=== PATIENT | male | born 1970 | race African-American/Black ===

== ENCOUNTER 2017-02-18 10:20 | Emergency (ER) | payer MEDICAID ==
[~2017-02-18] VITALS: Ht 182.9 cm; Wt 115.2 kg
[~2017-02-18 10:20] MED LIST: BACTRIM DS TAB1 EAC1 ORAL; KEFLEX500 MG ORAL
[2017-02-18] MEDS ORDERED: oxyCODONE HCL/Acetaminophen 5/325mg ORAL ONE (11:15)
[2017-02-18] MEDS ORDERED: Ketorolac 60mg Inj IM ONE (11:15)
--- NOTE | 2017-02-18 12:38 | Emergency Room Report ---
History of Present Illness General Chief Complaint: Back Pain-No Injury Source: Patient Present Illness HPI Increase in lower back pain. He's been told he has sciatica. The patient says the pain has been severe for the past 2 days. He is taking 800 mg of ibuprofen [id number]. He denies any incontinence, blood thinners, fever, oncologic problem. There is no weakness in the lower extremities. Hurts to sit down. Pain is 8-9/10 burning and aching. Radiates somewhat into his right testicle. He had to miss work several years ago for months due to this same type of pain. He prefers to stand up. No chest pain, URI symptoms, cough, dyspnea, rashes, dysuria, hematuria. No depression. 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, hair salon Reviewed Nursing Documentation: PMH: Agreed, PSxH: Agreed Nursing Documentation-PMH Past Medical History: No History, Except For Review of Systems All Other Systems: negative except mentioned in HPI Physical Exam Vital Signs Date Time Temp Pulse Resp B/P (MAP) Pulse Ox O2 Delivery O2 Flow Rate FiO2 02/18/17 10:32 97.5 69 18 118/79 98 Room Air General Appearance: well appearing, no apparent distress, alert, GCS 15 Head: normocephalic, atraumatic Eyes: bilateral eye normal inspection, bilateral eye PERRL ENT: hearing grossly normal, normal voice, moist mucus membranes Neck: full range of motion, supple Respiratory: lungs clear, no respiratory distress, speaking full sentences Cardiovascular #1: regular rate, rhythm Cardiovascular #2: 2+ radial (R) Gastrointestinal: normal inspection, normal bowel sounds Musculoskeletal: digits/nails normal, no calf tenderness, other - back spasms, no bony tenderness, more spasms R. SLR with some increased pain at near 90 degrees of flexion on R, no cross over pain Neurologic: alert, motor strength/tone normal, DTRs symmetric, sensory intact, cerebellar normal, normal gait, speech normal Psychiatric: mood/affect normal Reflexes: 2+ knee (R), 2+ knee (L), 2+ ankle (R), 2+ ankle (L) Skin: no rash Medical Decision Making Diagnostic Impression: Primary Impression: Back pain Qualified Codes: M54.41 - Lumbago with sciatica, right side Additional Impression: Muscle spasm ER Course Patient with back pain with h/o sciatica. DDx: sciatica, strain, exacerbation of disk disease amongst others. No red flag signs or symptoms. No acute trauma. Imagining not indicated at this time. Will focus on analgesia. Improved with treatment. Patient stable for outpatient observation and treatment. Last Vital Signs Date Time Temp Pulse Resp B/P (MAP) Pulse Ox O2 Delivery O2 Flow Rate FiO2 02/18/17 12:59 63 16 129/75 100 Room Air 02/18/17 12:59 97.4 Status: improved Disposition: HOME, SELF-CARE Condition: Improved Scripts Methocarbamol* (ROBAXIN*) 500 Mg Tablet 500 MG PO TID, #10 TAB 0 Refills Prov: Ken Owens M.D. 02/18/17 Tramadol Hcl* (ULTRAM*) 50 Mg Tablet 50 MG ORAL Q6H Y for For Pain, #14 TAB 0 Refills Prov: Ken Owens M.D. 02/18/17 Ibuprofen* (MOTRIN*) 600 Mg Tablet 600 MG ORAL Q6H Y for For Pain, #20 TAB Prov: Ken Owens M.D. 02/18/17 Referrals: [facility]OS[facility]/,REFERRING (PCP) Ken Owens M.D. Feb 18, 2017 12:38
[2017-02-18] MEDS ORDERED: ROBAXIN500 MG PO (12:40)
[2017-02-18] MEDS ORDERED: IBUPROFEN600 MG ORAL (12:40)
[2017-02-18] MEDS ORDERED: TRAMADOL HCL50 MG ORAL (12:40)
[2017-02-18 12:59] VITALS: BP 129/75
== END 2017-02-18 13:00 | disposition home or self-care (01) ==
LOC: EMR 12:14
DX: M54.40 Lumbago with sciatica, unspecified side (principal); M62.830 Muscle spasm of back
CPT/HCPCS: 96372; 99284

== ENCOUNTER 2017-07-22 18:31 | Emergency (ER) | payer MEDICAID ==
[~2017-07-22] VITALS: Ht 185.4 cm; Wt 113.4 kg
[~2017-07-22 18:31] MED LIST changes: +IBUPROFEN600 MG ORAL; +ROBAXIN500 MG PO; +TRAMADOL HCL50 MG ORAL
[2017-07-22] MEDS ORDERED: NKM (18:40)
[2017-07-22 18:50] VITALS: BP 143/87
[2017-07-22] MEDS ORDERED: Cephalexin 500mg cap ORAL ONE (19:00)
[2017-07-22] MEDS ORDERED: CEPHALEXIN500 MG ORAL (19:08)
[2017-07-22] MEDS ORDERED: INDOMETHACIN50 MG PO (19:08)
[2017-07-22 19:16] VITALS: BP 143/87
--- NOTE | 2017-07-22 20:00 | Emergency Room Report ---
History of Present Illness General Chief Complaint: Pain Source: Patient Present Illness HPI The patient is a 47-year-old male presenting for left leg and left toe pain. He states that he has been eating seafood for the past week. He states that this feels like gout. Pain is at the left big toe described as a 9/10 throbbing sensation. Worse with touch. He has not used any medications at. he is also complaining of left lower leg pain and swelling. He states that he was at the gym one week prior, tripped and fell. He noticed abrasions to the leg and ankle. The are has become red and swollen. This pain is a 3/10 dull ache and does not radiate. Worse with touch. He denies other symptoms including fever, chills, numbness or tingling, chest pain, shortness of breath, cough Allergies: Coded Allergies: No Known Allergies (Unverified , 01/26/14) Patient History Past Medical History: see triage record Pertinent Family History: none Reviewed Nursing Documentation: PMH: Agreed, PSxH: Agreed Review of Systems All Other Systems: negative except mentioned in HPI Physical Exam Vital Signs Date Time Temp Pulse Resp B/P (MAP) Pulse Ox O2 Delivery O2 Flow Rate FiO2 07/22/17 18:38 98.4 85 17 150/90 95 Room Air 98.4 Sp02 EP Interpretation: reviewed, normal General Appearance: no apparent distress, alert, GCS 15, non-toxic Head: normocephalic, atraumatic Eyes: bilateral eye normal inspection, bilateral eye PERRL Respiratory: chest non-tender, lungs clear, normal breath sounds, speaking full sentences Cardiovascular #1: regular rate, rhythm, no edema Musculoskeletal: no calf tenderness, inflammation - L lower leg, swelling - L first toe and L distal lower leg, tender - L 1st toe Neurologic: alert, oriented x3, responsive, motor strength/tone normal, sensory intact, speech normal Psychiatric: judgement/insight normal, memory normal, mood/affect normal, no suicidal/homicidal ideation Skin: rash - erythema to L lower leg, abrasions - over L tibia and L ankle Medical Decision Making PA Attestation Dr. Burleson is my supervising physician. Patient management was discussed with my supervising physician Diagnostic Impression: Primary Impression: Gout Qualified Codes: M10.9 - Gout, unspecified Additional Impression: Cellulitis Qualified Codes: L03.116 - Cellulitis of left lower limb ER Course The patient is a 47-year-old male presenting for left leg and left toe pain. Ddx considered include but not limited to gout, cellulitis, sprain/strain, fracture, contusion PE: Afebrile. NAD RRR Lungs CTA bilat Left lower leg has edema, erythema, and tenderness surrounding abrasions. Left toe first digit has edema, erythema, and tenderness to palpation with light touch. The patient will be treated with colchicine for gout and Keflex for cellulitis Is given prescription for Keflex and indomethacin. He will followup with his primary doctor as soon as possible. ER precautions were given Last Vital Signs Date Time Temp Pulse Resp B/P (MAP) Pulse Ox O2 Delivery O2 Flow Rate FiO2 07/22/17 19:16 98.4 77 17 143/87 95 Room Air 98.4 Status: improved Disposition: HOME, SELF-CARE Condition: Improved Scripts Indomethacin (INDOMETHACIN) 50 Mg Capsule 50 MG PO Q8HR, #15 CAP Prov: MILDRED KAUFMAN.A. 07/22/17 Cephalexin* (KEFLEX*) 500 Mg Capsule 500 MG ORAL EVERY 12 HOURS, #14 CAP 0 Refills Prov: MILDRED KAUFMAN P.A. 07/22/17 Referrals: [facility] ([facility]P) Patient Instructions: Low-Purine Diet, Cellulitis, Gout Additional Instructions: I discussed my findings with the patient. All questions and concerns have been answered. Treatment and medication compliance have been addressed. I advised the patient that they need to follow up with PMD in 3-5 days. Return to ED if symptoms worsen, new symptoms arise, or if needed for any reason. Patient verbalized understanding of discharge instructions. MILDRED KAUFMAN Jul 22, 2017 20:00
== END 2017-07-22 19:18 | disposition home or self-care (01) ==
LOC: EMR 19:12
DX: M10.9 Gout, unspecified (principal); L03.032 Cellulitis of left toe
CPT/HCPCS: 99284

== ENCOUNTER 2018-03-24 00:14 | Emergency (ER) | payer MEDICAID ==
[~2018-03-24] VITALS: Ht 185.4 cm; Wt 113.4 kg
[~2018-03-24 00:14] MED LIST changes: +CEPHALEXIN500 MG ORAL; +INDOMETHACIN50 MG PO; +NKM
[2018-03-24 01:00] VITALS: BP 129/63
[2018-03-24 01:25] LABS: HEMATOCRIT 45.4 % (42.0-52.0); HEMOGLOBIN 14.3 G/DL (14.2-18.0); MEAN CORPUSCULAR VOLUME 72 FL (80-99); PLATELET COUNT 180 K/UL (150-450); RED BLOOD COUNT 6.27 M/UL (4.70-6.10); RED CELL DISTRIBUTION WIDTH 12.5 % (11.6-14.8); WHITE BLOOD COUNT 5.5 K/UL (4.8-10.8)
[2018-03-24 01:30] LABS: APPEARANCE,URINE CLEAR; BILIRUBIN, URINE NEGATIVE (NEGATIVE); COLOR,URINE PALE YELLOW; GLUCOSE, URINE (UA) NEGATIVE (NEGATIVE); KETONES,URINE NEGATIVE (NEGATIVE); LEUKOCYTE ESTERASE ,URINE NEGATIVE (NEGATIVE); NITRITE,URINE NEGATIVE (NEGATIVE); PH,URINE 5 (4.5-8.0); PROTEIN,URINE NEGATIVE (NEGATIVE); UROBILINOGEN,URINE NORMAL MG/DL (0.0-1.0)
[2018-03-24 01:39] LABS: ALANINE AMINOTRANSFERASE 41 U/L (12-78); ALBUMIN 4.1 G/DL (3.4-5.0); ALKALINE PHOSPHATASE 60 U/L (46-116); ASPARTATE AMINO TRANSFERASE 26 U/L (15-37); BILIRUBIN,TOTAL 0.7 MG/DL (0.2-1.0); BLOOD UREA NITROGEN 15 mg/dL (7-18); CALCIUM 8.9 MG/DL (8.5-10.1); CARBON DIOXIDE 30 MMOL/L (21-32); CHLORIDE 99 MMOL/L (98-107); CREATINE KINASE 588 U/L (26-308)
[2018-03-24 01:43] LABS: CREATININE 1.6 MG/DL (0.55-1.30); SODIUM 135 MMOL/L (136-145)
[2018-03-24 03:10] VITALS: BP 126/62
[2018-03-24] MEDS ORDERED: CEPHALEXIN500 MG ORAL (03:39)
--- NOTE | 2018-03-24 03:39 | Emergency Room Report ---
History of Present Illness General Chief Complaint: Fever Present Illness HPI 47M in usual health until tonight c/o malaise, fatigue, myalgias. No specific symptom specifically no cp, no sob, no abd pain, no n/v, no diarrhea, no dysuria , no altered. There is no headache, no trauma, no URI symptoms. Allergies: Coded Allergies: No Known Allergies (Unverified , 01/26/14) Review of Systems Constitutional: Reports: see HPI, malaise Eye: Reports: no symptoms ENT: Reports: no symptoms Respiratory: Reports: no symptoms Cardiovascular: Reports: no symptoms Gastrointestinal: Reports: no symptoms Genitourinary: Reports: no symptoms Musculoskeletal: Reports: no symptoms Skin: Reports: no symptoms Psychiatric: Reports: no symptoms Neurological: Reports: no symptoms Endocrine: Reports: no symptoms Hematologic/Lymphatic: Reports: no symptoms Allergic: Reports: no symptoms All Other Systems: negative except mentioned in HPI Physical Exam Vital Signs Date Time Temp Pulse Resp B/P (MAP) Pulse Ox O2 Delivery O2 Flow Rate FiO2 03/24/18 00:28 102.0 122 20 162/86 95 Room Air 03/24/18 01:00 99 Sp02 EP Interpretation: reviewed, normal General Appearance: normal inspection, well appearing, no apparent distress, alert, GCS 15, non-toxic, obese Head: normocephalic, atraumatic Eyes: bilateral eye normal inspection, bilateral eye PERRL, bilateral eye EOMI ENT: normal ENT inspection, hearing grossly normal, normal pharynx, no angioedema, normal voice, moist mucus membranes Neck: normal inspection, full range of motion, supple, no meningismus, no bony tend Respiratory: normal inspection, lungs clear, normal breath sounds, no rhonchi, no respiratory distress, no retraction, no accessory muscle use, no wheezing Cardiovascular #1: normal inspection, regular rate, rhythm, no edema Gastrointestinal: normal inspection, normal bowel sounds, non tender, soft, no mass, non-distended Musculoskeletal: gait/station normal, normal range of motion Neurologic: normal inspection, alert, oriented x3, responsive, motor strength/ tone normal Psychiatric: normal inspection, judgement/insight normal, memory normal Suicide Risk Assessment: Suicidal Ideation: No Had intent to initiate attempt: No Pt's plan for suicide attempt: No Has means to complete attempt: No Skin: normal inspection, normal color, no rash, warm/dry Medical Decision Making Diagnostic Impression: Primary Impression: Viral syndrome ER Course This could be early sepsis or viral syndrome. Lactic acids noted, no particular source. BP fine will not give addl. fluids. Pt. stable for d/c. EKG Diagnostic Results EKG Time: 03:38 Rate: tachycardiac ST Segments: no acute changes Other Impression sinus tachy 112, nSST Rhythm Strip Diag. Results Rhythm Strip Time: 03:38 EP Interpretation: yes Rhythm: NSR Last Vital Signs Date Time Temp Pulse Resp B/P (MAP) Pulse Ox O2 Delivery O2 Flow Rate FiO2 03/24/18 01:12 100 03/24/18 01:00 20 Room Air 99 03/24/18 01:00 102.0 129/63 98 Status: improved Disposition: HOME, SELF-CARE Scripts Cephalexin* (KEFLEX*) 500 Mg Capsule 500 MG ORAL EVERY 6 HOURS, #28 CAP Prov: Dontrell Greer M.D. 03/24/18 Referrals: [facility] (PCP) Patient Instructions: Fever, Adult Dontrell Greer M.D. Mar 24, 2018 03:39
[2018-03-24] MEDS ORDERED: cefTRIAXone 1 GM in NS 55 ML IVPB ONE (03:45)
[2018-03-24 04:10] VITALS: BP 123/61
[2018-03-24 04:13] VITALS: BP 123/61
[2018-03-24 04:22] VITALS: BP 123/61
--- NOTE | 2018-03-26 08:27 | Cardiology Report ---
APPROVED REPORT EKG Measurement Heart [id number] Sinus tachycardia Nonspecific T wave abnormality Abnormal ECG
== END 2018-03-24 04:10 | disposition home or self-care (01) ==
LOC: EMR 01:37
DX: B34.9 Viral infection, unspecified (principal); R50.9 Fever, unspecified
CPT/HCPCS: 36415; 71045; 80053; 81003; 82550; 83605; 84484; 85007; 85025; 87040; 93005; 96361; 96365; 99284; J0696

== ENCOUNTER 2018-07-24 20:26 | Emergency (ER) | payer MEDICAID ==
[~2018-07-24] VITALS: Ht 185.4 cm; Wt 111.1 kg
[2018-07-24 20:35] VITALS: BP 154/92
--- NOTE | 2018-07-24 20:35 | NUR ---
ED Nurse Note: Patient walk in c/o pain in toes and heel on left foot for a few days. Patient believes it is a gout flare up. Patient rates his pain a 8/10 pain especially on his left foot, able to ambulate however with a limp, patient is alert and oriented x4
--- NOTE | 2018-07-24 21:15 | Emergency Room Report ---
History of Present Illness General Chief Complaint: Pain Source: Patient Present Illness HPI Patient presents with complaints of left foot pain Points to the base of the large toe for the location of the pain also felt that he has some discomfort just above the calcaneal area Denies any fall or trauma Patient reports that he has history of gout and this is the usual location where he has pain Denies any ankle pain denies any knee pain patient was taking his Naprosyn with minimal relief Denies any swelling Allergies: Coded Allergies: No Known Allergies (Unverified , 01/26/14) Patient History Past Medical History: see triage record Pertinent Family History: none Reviewed Nursing Documentation: PMH: Agreed; PSxH: Agreed Nursing Documentation-PMH Past Medical History: No History, Except For Review of Systems All Other Systems: negative except mentioned in HPI Physical Exam Vital Signs Date Time Temp Pulse Resp B/P (MAP) Pulse Ox O2 Delivery O2 Flow Rate FiO2 07/24/18 20:31 97.9 74 16 154/92 96 Room Air Sp02 EP Interpretation: reviewed, normal General Appearance: well appearing, no apparent distress Head: normocephalic, atraumatic Eyes: bilateral eye PERRL, bilateral eye EOMI ENT: normal pharynx, no angioedema Neck: full range of motion, supple Respiratory: lungs clear Cardiovascular #1: regular rate, rhythm Gastrointestinal: non tender, soft Musculoskeletal: other - Some discomfort palpable to the proximal left large toe no obvious edema or erythema, full flexion-extension intact Achilles tendon is palpable as well Neurologic: alert, oriented x3, responsive Skin: normal inspection Lymphatic: no adenopathy Medical Decision Making Diagnostic Impression: Primary Impression: Gout ER Course Multiple differentials and consideration including but not limited to arthritic changes, occult fracture, infectious pathology Patient reports that he usually gets a pill that he has a flareup which helped some Lack of any erythema or trauma other differentials are lower Patient will have initial conservative outpatient trial and return with any changes or concerns Last Vital Signs Date Time Temp Pulse Resp B/P (MAP) Pulse Ox O2 Delivery O2 Flow Rate FiO2 07/24/18 20:35 97.9 82 16 154/92 96 Room Air Status: improved Disposition: HOME, SELF-CARE Condition: Improved Referrals: [facility] (PCP) Additional Instructions: Patient is provided with the discharge instructions notified to follow up with primary doctor in the next 2-3 days otherwise return to the er with any worsening symptoms. Please note that this report is being documented using DRAGON technology. This can lead to erroneous entry secondary to incorrect interpretation by the dictating instrument. Aleksandr Romo DO Jul 24, 2018 21:15
[2018-07-24] MEDS ORDERED: COLCHICINE0.6 M1 PO (21:17)
[2018-07-24 21:39] VITALS: BP 148/88
--- NOTE | 2018-07-24 21:40 | NUR ---
ER DISCHARGE NOTE: Patient is cleared to be discharged per ERMD, pt is aox4, on room air, with stable vital signs. pt was given dc and prescription instructions, pt was able to verbalize understanding, pt id band removed without complications. pt is able to ambulate with steady gait. pt took all belongings.
== END 2018-07-24 21:41 | disposition home or self-care (01) ==
LOC: EMR 20:40
DX: M10.9 Gout, unspecified (principal)
CPT/HCPCS: 99282

== ENCOUNTER 2018-11-08 19:29 | Emergency (ER) | payer MEDICAID ==
[~2018-11-08] VITALS: Ht 185.4 cm; Wt 113.4 kg
[~2018-11-08 19:29] MED LIST changes: +COLCHICINE0.6 M1 PO
[2018-11-08 19:40] VITALS: BP 135/89
--- NOTE | 2018-11-08 19:40 | NUR ---
ED Nurse Note: pt walked in c/o low back pain for two days, pt denies any recent injuries nor trauma, pt reports pain worsening on sitting or moving. will cont monitor. pt ambulates w/ steady gait, cms intact all ext.
[2018-11-08] MEDS ORDERED: TRAMADOL HCL50 MG ORAL (20:05)
[2018-11-08] MEDS ORDERED: ROBAXIN-750750 MG PO (20:05)
[2018-11-08] MEDS ORDERED: IBUPROFEN600 MG ORAL (20:05)
--- NOTE | 2018-11-08 20:08 | Emergency Room Report ---
History of Present Illness General Chief Complaint: Lower Back Pain or Injury Source: Patient Present Illness HPI Patient is a 48-year-old male presented after increased right-sided low back pain. Patient reports of increased tightness to his low back for the past 2 days. This began after leaning forward. Patient had prior history of lumbar disc disease. He states that he had not been having any fever or difficulty with urination. He reportedly had a negative stool test earlier in the week. He reports having a prior history of gout. He denies any hematuria or difficulty with stools. He reports having increased pain with flexion and left lateral flexion. Allergies: Coded Allergies: No Known Allergies (Unverified , 01/26/14) Patient History Past Medical History: see triage record Reviewed Nursing Documentation: PMH: Agreed; PSxH: Agreed Nursing Documentation-PMH Past Medical History: No Stated History Review of Systems All Other Systems: negative except mentioned in HPI Physical Exam Vital Signs Date Time Temp Pulse Resp B/P (MAP) Pulse Ox O2 Delivery O2 Flow Rate FiO2 11/08/18 19:34 98.2 90 18 135/89 (104) 95 Room Air General Appearance: well appearing, no apparent distress, alert, GCS 15 Head: normocephalic, atraumatic ENT: hearing grossly normal, normal voice Neck: full range of motion, supple Respiratory: lungs clear, normal breath sounds, no respiratory distress, speaking full sentences Gastrointestinal: normal inspection Musculoskeletal: normal inspection, decreased range of mation, other - decreased rom, worsening pain with right lateral flexion, forward flexion Neurologic: normal inspection, alert, oriented x3, responsive, 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 Differential diagnosis include was not limited to lumbar disc disease, spinal stenosis, sciatica, renal stone among others. Patient has a benign exam and does not appear to require any further imaging or laboratory testing at this time. Patient is noted to have prior history of similar symptoms and had previous imaging which showed a L4-L5 disc disease. Patient was given prescriptions for pain medications as well as Toradol for pain. Patient appears to be stable for outpatient evaluation with his primary care physician. Patient was advised to return if he began having bowel bladder dysfunction leg weakness or other concerns. Last Vital Signs Date Time Temp Pulse Resp B/P (MAP) Pulse Ox O2 Delivery O2 Flow Rate FiO2 11/08/18 19:34 98.2 90 18 135/89 (104) 95 Room Air Status: improved Disposition: HOME, SELF-CARE Condition: Stable Scripts Tramadol Hcl* (ULTRAM*) 50 Mg Tablet 50 MG ORAL Q6H PRN for For Pain, #12 TAB 0 Refills Prov: Ruben Combs MD 11/08/18 Methocarbamol* (ROBAXIN-750*) 750 Mg Tablet 750 MG PO TID, #21 TAB 0 Refills Prov: Ruben Combs MD 11/08/18 Ibuprofen* (MOTRIN*) 600 Mg Tablet 600 MG ORAL Q8H PRN for For Pain, #30 TAB 0 Refills Prov: Ruben Combs MD 11/08/18 Patient Instructions: Herniated Disk With Rehab[facility] Ruben Combs MD Nov 08, 2018 20:08
[2018-11-08] MEDS ORDERED: Ketorolac 60mg Inj IM ONE (20:15)
--- NOTE | 2018-11-08 20:16 | NUR ---
ED Nurse Note: Meds given as ordered.
[2018-11-08 20:20] VITALS: BP 132/83
--- NOTE | 2018-11-08 20:20 | NUR ---
ER DISCHARGE NOTE: Patient is cleared to be discharged per Garret. Pt is aox4 on room air with stable vital signs. Pt was given dc and prescription instructions and was able to verbalize understanding. Pt's band removed. Pt is able to ambulate with steady gait and took all belongings.
== END 2018-11-08 20:20 | disposition home or self-care (01) ==
LOC: EMR 20:06
DX: M51.36 Other intervertebral disc degeneration, lumbar region (principal)
CPT/HCPCS: 96372; 99283

== ENCOUNTER 2018-11-12 20:08 | Emergency (ER) | payer MEDICAID ==
[~2018-11-12] VITALS: Ht 185.4 cm; Wt 113.4 kg
[~2018-11-12 20:08] MED LIST changes: +ROBAXIN-750750 MG PO
[2018-11-12 20:30] VITALS: BP 160/76
--- NOTE | 2018-11-12 20:30 | NUR ---
ER Nurse Note: Pt came from home c/o lower back pain. Pt stated 8/10 throbbing pain that is unrelieved by prescribed pain meds. Pt was recently in ER for same pain last week, pain meds prescribed but has not been consistant with medication. Pt has an appointment with primary care physican on 11/18. Will continue to [facility].
[2018-11-12] MEDS ORDERED: Ketorolac 60mg Inj IM ONE (20:45)
--- NOTE | 2018-11-12 20:48 | Emergency Room Report ---
History of Present Illness General Chief Complaint: Lower Back Pain or Injury Source: Patient Present Illness HPI 48-year-old male with history of low back pain who was here a few days ago due to low back pain without radiation. Patient is rating his pain 10 out of 10 without radiation denying tingling and numbness. Patient reports that he did have an appointment with his primary care physician yesterday however was unable to get out of bed and made another appointment for this coming Sunday. Patient did not corn picker his tramadol until today and has started taking it today. Patient denies any new injury, urinary or bowel incontinence saddle paresthesia. Denies chest pain, palpitation, shortness of breath, and all other associated symptoms. Denies dysuria and hematuria. Allergies: Coded Allergies: No Known Allergies (Unverified , 01/26/14) Patient History Past Medical History: see triage record Past Surgical History: unable to obtain Pertinent Family History: none Immunizations: UTD Reviewed Nursing Documentation: PMH: Agreed; PSxH: Agreed Nursing Documentation-PMH Past Medical History: No Stated History Review of Systems All Other Systems: negative except mentioned in HPI Physical Exam Vital Signs Date Time Temp Pulse Resp B/P (MAP) Pulse Ox O2 Delivery O2 Flow Rate FiO2 11/12/18 20:21 98.8 66 18 160/76 (104) 98 Room Air Sp02 EP Interpretation: reviewed, normal General Appearance: normal inspection, well appearing, no apparent distress, alert, GCS 15 Head: normocephalic, atraumatic Eyes: bilateral eye normal inspection, bilateral eye PERRL ENT: normal ENT inspection, normal pharynx Neck: normal inspection, full range of motion, supple Respiratory: normal inspection, chest non-tender, lungs clear, no rhonchi, no wheezing Cardiovascular #1: normal inspection, normal peripheral pulses, regular rate, rhythm, no murmur, normal capillary refill Gastrointestinal: normal inspection, non tender, soft Rectal: deferred Genitourinary: no CVA tenderness Musculoskeletal: normal inspection, back normal, digits/nails normal Neurologic: normal inspection, alert, oriented x3, responsive Psychiatric: normal inspection, judgement/insight normal Skin: normal inspection, normal color, no rash, palpation normal, well hydrated Lymphatic: normal inspection, no adenopathy Medical Decision Making PA Attestation All my diagnosis and treatment plans were reviewed ad discussed with my supervising physician Dr. Burleson Diagnostic Impression: Primary Impression: Low back pain ER Course 48-year-old male with history of low back pain who was here a few days ago due to low back pain without radiation. Patient is rating his pain 10 out of 10 without radiation denying tingling and numbness. Patient reports that he did have an appointment with his primary care physician yesterday however was unable to get out of bed and made another appointment for this coming Sunday. Patient did not corn picker his tramadol until today and has started taking it today. Patient denies any new injury, urinary or bowel incontinence saddle paresthesia. Denies chest pain, palpitation, shortness of breath, and all other associated symptoms. Denies dysuria and hematuria. Ddx considered but are not limited to : Lumbar sprain, lumbar strain, fracture, chronic low back pain. Vital signs: are WNL, pt. is afebrile H&PE are most consistent with: Right low back pain due to lumbar strain. ORDERS: The patient was here a few days ago. Toradol, Voltaren gel, ibuprofen 800, Flexeril ED INTERVENTIONS: Toradol DISCHARGE: At this time pt. is stable for d/c to home. Will provide printed patient care instructions, and any necessary prescriptions. Care plan and follow up instructions have been discussed with the patient prior to discharge. Patient to follow-up with her primary care physician for referral to physical therapy and further assessment avoid taking other medication that was given to other than tramadol as I gave you the higher strengths of the same medications. Last Vital Signs Date Time Temp Pulse Resp B/P (MAP) Pulse Ox O2 Delivery O2 Flow Rate FiO2 11/12/18 20:21 98.8 66 18 160/76 (104) 98 Room Air Disposition: HOME, SELF-CARE Condition: Stable Scripts Cyclobenzaprine Hcl* (FLEXERIL*) 10 Mg Tablet 10 MG ORAL BID, #15 TAB Prov: Deric Puentes 11/12/18 Diclofenac Sodium (VOLTAREN) 100 Gm Gel..gram. 2 GM TP TID, #100 GM Prov: Deric Puentes 11/12/18 Ibuprofen (Ibuprofen) 800 Mg Tablet 800 MG PO TID, #30 TAB Prov: Deric Puentes 6/25/19 Patient Instructions: Back Pain, Adult Additional Instructions: Follow-up with your primary care provider for referral to physical therapy and further assessment. Alternate between icing and heating the affected area avoid strenuous physical activity Deric Puentes Nov 12, 2018 20:48
[2018-11-12] MEDS ORDERED: IBUPROFEN800 M1 PO (20:56)
[2018-11-12] MEDS ORDERED: VOLTAREN100 G1 TP (20:56)
[2018-11-12] MEDS ORDERED: CYCLOBENZAPRINE10 MG ORAL (20:56)
[2018-11-12 21:05] VITALS: BP 160/76
--- NOTE | 2018-11-12 21:05 | NUR ---
ER Nurse Note: Pt seen, treated, medically cleared for discharge by ERMD. Discharge instuctions and prescriptions given with repeat verbalization by pt. Emphasized to follow up with primay care provider/ortho. All orders completed per ER PA orders. Pt a&ox4, VSS, no signs of distress. Ice packed provided. ID band removed. Pt ambulaitory with steady gait, left with all belongings, left with own transportation.
== END 2018-11-12 21:05 | disposition home or self-care (01) ==
LOC: EMR 20:51
DX: M54.5 Low back pain (principal)
CPT/HCPCS: 96372; 99283